=== PATIENT | male | born 1985 | race Caucasian/White ===

== ENCOUNTER 2020-02-02 20:34 | Emergency (ER) | payer OTHER ==
[~2020-02-02] VITALS: Ht 190.5 cm; Wt 104.0 kg
[2020-02-02 20:45] VITALS: BP 146/78
[2020-02-02] MEDS ORDERED: HYDR25TA PO (21:44)
[2020-02-02] MEDS ORDERED: diazePAM 5 MG TABLET PO ONE (21:45)
--- NOTE | 2020-02-02 21:45 | PHYS DOC ---
Past Medical History Past Medical History: No Pertinent History Past Surgical History: No Surgical History Smoking Status: Never Smoker Alcohol Use: None Social History Narrative: MARIJUANA ABOUT 30 MINS AGO. General Adult EDM: Chief Complaint: OTHER COMPLAINTS HPI: HPI: Patient is a 34 year old male patient with history of developmental delay/learning disability who presents to the ED today with his brother. Patient states he has been very anxious and unable to sleep today because his mother is on a ventilator in ICU for COVID19. Brother report the mother has been in the ventilator for 2 weeks, today they tried to wean her off and when patient was notified the mother was off the ventilator he got very anxious because however relayed the information to patient was not able to explain it in a way that patient could understand that being weaned off a ventilator is a good thing. He took the information like something bad is happening and got very anxious, he was unable to sleep and came to the ED. Patient reports he was positive for COVID-19, 2 weeks ago and tested negative a couple days ago. Review of Systems: Review of Systems: Constitutional: Denies fever or chills. [] Eyes: Denies change in visual acuity. [] HENT: Denies nasal congestion or sore throat. [] Respiratory: Denies cough or shortness of breath. [] Cardiovascular: Denies chest pain or edema. [] GI: Denies abdominal pain, nausea, vomiting, bloody stools or diarrhea. [] : Denies dysuria. [] Musculoskeletal: Denies back pain or joint pain. [] Integument: Denies rash. [] Neurologic: Denies headache, focal weakness or sensory changes. [] Endocrine: Denies polyuria or polydipsia. [] Lymphatic: Denies swollen glands. [] Psychiatric: Reports anxiety Heart Score: Risk Factors: Risk Factors: DM, Current or recent (<one month) smoker, HTN, HLP, family history of CAD, obesity. Risk Scores: Score 0 - 3: 2.5% MACE over next 6 weeks - Discharge Home Score 4 - 6: 20.3% MACE over next 6 weeks - Admit for Clinical Observation Score 7 - 10: 72.7% MACE over next 6 weeks - Early Invasive Strategies Current Medications: Current Medications Medications (Trade) Dose Ordered Sig/Nydia Start Time Stop Time Status Last Admin Dose Admin Diazepam (Valium) 5 mg 1X ONCE 02/02/20 21:45 02/02/20 21:46 Allergies: Allergies: Allergies Coded Allergies Type Severity Reaction Last Updated Verified No Known Drug Allergies 02/02/20 No Physical Exam: PE: Constitutional: Well developed, well nourished, no acute distress, non-toxic appearance. [] HENT: Normocephalic, atraumatic, bilateral external ears normal, oropharynx moist, no oral exudates, nose normal. [] Eyes: PERRLA, EOMI, conjunctiva normal, no discharge. [] Neck: Normal range of motion, no tenderness, supple, no stridor. [] Cardiovascular:Heart rate regular rhythm, no murmur [] Lungs & Thorax: Bilateral breath sounds clear to auscultation [] Abdomen: Bowel sounds normal, soft, no tenderness, no masses, no pulsatile masses. [] Skin: Warm, dry, no erythema, no rash. [] Back: No tenderness, no CVA tenderness. [] Extremities: No tenderness, no cyanosis, no clubbing, ROM intact, no edema. [] Neurologic: Alert and oriented X 3, normal motor function, normal sensory function, no focal deficits noted. [] Psychologic: Slightly anxious at the beginning of the conversation but appeared calm after talking Current Patient Data: Vital Signs: Vital Signs Date Time Temp Pulse Resp B/P (MAP) Pulse Ox O2 Delivery O2 Flow Rate FiO2 02/02/20 20:45 97.9 85 18 146/78 (100) 97 Room Air 97.9 EKG: EKG: [] Radiology/Procedures: Radiology/Procedures: [] Course & Med Decision Making: Course & Med Decision Making Pertinent Labs and Imaging studies reviewed. (See chart for details) This is a 34-year-old male patient presenting to the ED today to be evaluated for anxiety and insomnia due to mother's illness in ICU on a ventilor for COVID19, see HPI. Patient was given Valium, discharged on Atarax. Follow-up with PCP next week. Sigifredoon Disclaimer: Suly Disclaimer: This electronic medical record was generated, in whole or in part, using a voice recognition dictation system. Departure Departure Impression: Primary Impression: Anxiety Additional Impression: Insomnia Qualified Codes: G47.00 - Insomnia, unspecified Disposition: 01 DC HOME SELF CARE/HOMELESS Condition: STABLE Referrals: NO PCP (PCP) follow up with your doctor next week Patient Instructions: Anxiety and Panic Attacks, [id number] Additional Instructions: You were treated in the emergency room for anxiety. Please follow-up with your primary care doctor next week. Come back to the ED at any point symptoms worsen Scripts Hydroxyzine Hcl (HYDROXYZINE HCL) 25 Mg Tablet 1 TAB PO TID, #30 TAB Prov: CHIDI BLACK APRN 02/02/20 CHIDI BLACK APRN Feb 02, 2020 21:45
== END 2020-02-02 22:05 | disposition home or self-care (01) ==
LOC: ER 20:34
DX: F41.9 Anxiety disorder, unspecified (principal); G47.00 Insomnia, unspecified
CPT/HCPCS: 99283